=== PATIENT | female | born 1960 | race Caucasian/White ===

== ENCOUNTER 2016-11-17 09:55 | Day surgery (SDC) | payer OTHER ==
[2016-11-17] MEDS ORDERED: Propofol 10 mg/ml Inj (20 ML) ONE ×2 (11:49→11:52)
[2016-11-17] MEDS ORDERED: Midazolam 2 MG/2 ML VIAL ONE (11:49)
[2016-11-17 11:58] VITALS: O2SAT 100
[2016-11-17 12:37] VITALS: TEMP 96.8
[2016-11-17 14:32] VITALS: BP 119/72; PULSE 58; RESP 12
== END 2016-11-17 14:31 | disposition home or self-care (01) ==
LOC: C.ENDO 09:55
PROVIDERS: ATTEND Internal Medicine Gastroenterology
DX: D12.3 Benign neoplasm of transverse colon (principal); D12.4 Benign neoplasm of descending colon; D12.5 Benign neoplasm of sigmoid colon; K57.90 Diverticulosis of intestine, part unspecified, without perforation or abscess without bleeding; K64.8 Other hemorrhoids
CPT/HCPCS: 45380; 88305; J2250; J2704

== ENCOUNTER 2017-01-29 10:36 | Day surgery (SDC) | payer OTHER ==
[2017-01-28 12:22] VITALS: BMI 30.8
[2017-01-29] MEDS ORDERED: ceFAZolin IV 1 gm in Dextrose 0 GM/0 ML BAG IVPB ONE (11:34)
[2017-01-29] MEDS ORDERED: Bupivacaine/Epi 0.25%-1:200,000 10 ml PF inj IJ ONE (11:35)
[2017-01-29] MEDS ORDERED: Lidocaine 1% Inj (20ml) ONE (11:35)
[2017-01-29] MEDS ORDERED: ceFAZolin IV 2 gm in Dextrose 1 GM/50 ML BAG IVPB ONE (12:20)
[2017-01-29] MEDS ORDERED: Propofol 10 mg/ml Inj (20 ML) ONE ×3 (12:30→13:04)
[2017-01-29] MEDS ORDERED: Midazolam 2 MG/2 ML VIAL ONE (12:30)
--- NOTE | 2017-01-29 13:35 | PCM.SURG1 ---
Surgeon's Initial Post Op Note - Surgeon's Notes Surgeon: Dr Donald Oral And Maxillofacial Surgery Resident: Dr Kwon PGY2 Type of Anesthesia: General Endo Pre-Operative Diagnosis: right thigh lipoma Operative Findings: as above Post-Operative Diagnosis: as above Operation Performed: excision of lipoma Specimen/Specimens Removed: lipoma Estimated Blood Loss: EBL {In ML}: 5 Blood Products Given: N/A Drains Used: No Drains Post-Op Condition: Good Date of Surgery/Procedure: 01/29/17 Time of Surgery/Procedure: 13:35
[2017-01-29] MEDS: HYDROmorphone 0.5 mg/0.5 ml ISec IVP PRN ×2 (14:30→14:34)
[2017-01-29] MEDS ORDERED: Lactated Ringer's 500 ML IV ONE (14:40)
[2017-01-29 14:53] VITALS: RESP 12
[2017-01-29 15:15] VITALS: TEMP 98.5; O2SAT 98
[2017-01-29 16:57] VITALS: BP 100/64; PULSE 64
--- NOTE | 2017-01-31 19:51 | OP ---
PROCEDURE DATE: 01/29/2017 PREOPERATIVE DIAGNOSIS: Lipoma of right posterior thigh, approximately 6 cm x 6 cm. POSTOPERATIVE DIAGNOSIS: Lipoma of right posterior thigh, approximately 6 cm x 8 cm size. PROCEDURES DONE: 1. Excision of lipoma of the right posterior thigh 6 x 8 cm size. 2. Layered closure of the wound 6 x 8 cm size. SURGEON: Jeremiah Donald MD SYSTEMS SPEC: Jesus Alberto Kwon, PGY-2 resident. ANESTHESIA: General endotracheal tube anesthesia. ESTIMATED BLOOD LOSS: Around 10 mL. DRAINS: None. PATHOLOGY: The lipoma was sent for pathology. COMPLICATIONS: None. INTRAOPERATIVE FINDINGS: The patient had a large lobulated lipoma of the right posterior thigh of ap proximately 6 x 8 cm size. INTRAOPERATIVE STEPS: This 57-year-old female was diagnosed with a lipoma of the right posterior thi gh and patient was consented for excision, brought to the OR, placed in the left lateral position and the right posterior thigh was prepped and draped and local anesthesia was injected. After that, an elliptical shape incision was made on the skin surrounding the lipoma. Upper and lower flap was crea shelly. The lipoma appeared to be extending up to the underlying fascia and all the finger-like project ions were completely excised and the lipoma was sent off the table for the pathology. Now, the wound was irrigated and wound was closed in multiple layers, the deep layer of subQ with 2-0 Vicryl, anoth er layer of the subQ with 3-0 Vicryl, skin with a 4-0 Monocryl and another layer of the skin with a 4 -0 nylon interrupted suture and dry sterile dressing was applied. The patient tolerated the procedur e well. Count of instruments and gauze was correct. There was no apparent complication. Jeremiah Donald MD cc: [id number] TT: 01/31/2017 19:50:39 placido
== END 2017-01-29 16:45 | disposition home or self-care (01) ==
LOC: C.SDS 10:36
PROVIDERS: ATTEND Surgery Surgical Critical Care
DX: D17.23 Benign lipomatous neoplasm of skin and subcutaneous tissue of right leg (principal)
CPT/HCPCS: 11406; 12034; 88307; J0690; J1170; J2250; J2704; J3010; J7120

== ENCOUNTER 2017-12-04 08:53 | Emergency (ER) | payer OTHER, SELFPAY ==
[2017-12-04 08:53] VITALS: BMI 30.7
[2017-12-04 08:57] VITALS: BP 132/85; PULSE 101; RESP 18; TEMP 97.6; O2SAT 97
[2017-12-04] MEDS ORDERED: Naproxen 550 mg Tab PO STA (09:26)
[2017-12-04] MEDS ORDERED: Naproxen 550 mg Tab PO ONE (09:32)
[2017-12-04 09:50] LABS: INFLUENZA A B NEGATIVE FOR FLU A/B (NEGATIVE)
--- NOTE | 2017-12-04 10:09 | C.PDOC ---
History Of Present Illness 57 year old female, with no significant past medical history, presents to the emergency department complaining of body aches, sore throat, fever, headache, and lightheadedness since yesterday. She denies chest pain, shortness of breath , nausea, vomiting, diarrhea or dysuria. Time Seen by Provider: 12/04/17 09:11 Chief Complaint (Nursing): Flu-like Symptoms History Per: Patient History/Exam Limitations: no limitations Onset/Duration Of Symptoms: Days (x1) Current Symptoms Are (Timing): Still Present Location Of Pain: Throat, Headache Associated Symptoms: Fever, Sore Throat, Other (headache, body aches and lightheadedness). denies: Nausea, Vomiting, Diarrhea Ear Symptoms: Bilateral: None Severity: Mild Past Medical History Reviewed: Historical Data, Nursing Documentation, Vital Signs Vital Signs: Last Vital Signs Temp 97.6 F 12/04/17 08:56 Pulse 101 H 12/04/17 08:56 Resp 18 12/04/17 08:56 BP 132/85 12/04/17 08:56 Pulse Ox 97 12/04/17 11:10 - Medical History PMH: Colonic Polyps, Gastritis, Gastrointestinal Ulcer, Gall Bladder Disease Surgical History: Appendectomy, Cholecystectomy (LAP CHOLECYSTECTOMY, ERCP), Endoscopy (WITH BIOPSY) - [facility] Procedures EXCISION OF STOMACH, ENDO, DIAGN (05/09/16) RESECTION OF GALLBLADDER, PERCUTANEOUS ENDOSCOPIC APPROACH (06/20/16) Family History: States: No Known Family Hx - Social History Hx Tobacco Use: No Hx Alcohol Use: No Hx Substance Use: No - Immunization History Hx Tetanus Toxoid Vaccination: No Hx Influenza Vaccination: No Hx Pneumococcal Vaccination: No Review Of Systems Except As Marked, All Systems Reviewed And Found Negative. Constitutional: Positive for: Fever, Other (body aches) ENT: Positive for: Throat Pain Cardiovascular: Positive for: Light Headedness. Negative for: Chest Pain Respiratory: Negative for: Shortness of Breath Gastrointestinal: Negative for: Nausea, Vomiting, Diarrhea Genitourinary: Negative for: Dysuria, Hematuria Neurological: Positive for: Headache Physical Exam - Physical Exam Appears: Well, Non-toxic, Other (mildly uncomfortable) Skin: Normal Color, Warm, Dry, No Rash Head: Normacephalic Eye(s): bilateral: Normal Inspection Ear(s): Bilateral: Normal Nose: Normal Oral Mucosa: Moist Throat: Erythema (mild), Exudate (mild), No Other (no tonsillar swelling, uvula midline and normal in appearance ) Neck: Supple Lymphatic: No Adenopathy Cardiovascular: Rhythm Regular Respiratory: Normal Breath Sounds, No Rales, No Rhonchi, No Wheezing Gastrointestinal/Abdominal: Normal Exam, Bowel Sounds, Soft, No Tenderness, No Guarding, No Rebound Neurological/Psych: Oriented x3 ED Course And Treatment O2 Sat by Pulse Oximetry: 97 (RA) Pulse Ox Interpretation: Normal Progress Note: Initial Impression: Viral syndrome. Initial Plan: Strep and influenza swabs, accucheck ordered and reviewed. Patient given PO Naprosyn and Tamiflu in ED. (strep swab negative and symptoms more consistent with viral syndrome/influenza). Rxs for Tamiflu, Naprosyn and chloraseptic spray given. Patient instructed to get rest, drink plenty of fluids, and follow up with PMD/ clinic in 1-2 days. She understands she should return to ED if symptoms worsen. Reevaluation Time: 10:15 Reassessment Condition: Improved Disposition Counseled Patient/Family Regarding: Diagnosis, Need For Followup, Rx Given - Disposition Referrals: [facility] [Outside] Disposition: HOME/ ROUTINE Disposition Time: 10:15 Condition: STABLE Additional Instructions: FOLLOW UP WITH YOUR DOCTOR/CLINIC IN 1-2 DAYS USE MEDICATIONS DIRECTED RETURN TO ER IF SYMPTOMS WORSEN Prescriptions: Naproxen 375 mg PO BID PRN #20 tablet PRN Reason: pain Oseltamivir Phosphate [Tamiflu] 75 mg PO BID #10 capsule Phenol/Glycerin [Chloraseptic Max [place]] 1 spray MM Q6 PRN #1 spray PRN Reason: THROAT PAIN Instructions: Viral Syndrome (DC) Forms: [employer] (Bulgarian) Print Language: KOREAN - Clinical Impression Clinical Impression: Influenza-like illness, Viral syndrome - Scribe Statement The provider has reviewed the documentation as recorded by the Teddy Peterson Provider Attestation: All medical record entries made by the Teddy were at my direction and personally dictated by me. I have reviewed the chart and agree that the record accurately reflects my personal performance of the history, physical exam, medical decision making, and the department course for this patient. I have also personally directed, reviewed, and agree with the discharge instructions and disposition.
== END 2017-12-04 10:23 | disposition home or self-care (01) ==
LOC: C.ER 08:53
DX: J11.1 Influenza due to unidentified influenza virus with other respiratory manifestations (principal); B34.9 Viral infection, unspecified